=== PATIENT | female | born 2000 | race African-American/Black ===

== ENCOUNTER 2021-09-24 18:13 | Emergency (ER) | payer MEDICAID, OTHER ==
--- NOTE | 2021-09-24 18:22 | ERPHSYRPT ---
- History of Present Illness Time Seen by Provider: 09/24/21 18:22 Source: patient Exam Limitations: no limitations Physician History: This is a 21-year-old female and underwent a section 3 months ago. Since that time she has had the incision evaluated by her lever operator. The incision itself was not infected but there was serous fluid draining per patient report. It has improved but it is still very moist in this area. In addition, the patient's child was diagnosed with thrush and patient nipples are sore bilaterally and slightly reddened. Patient has not had fevers. She has no nausea vomiting or diarrhea symptoms. Timing/Duration: day(s) Quality: burning Severity: mild Location: other (pfannensteil incision site as well as bilateral nipples) Associated Symptoms: denies symptoms Allergies/Adverse Reactions: cephalexin [From Keflex] Allergy (Verified 09/24/21 18:29) Travel Risk - International Travel Have you traveled outside of the country in past 3 weeks: No - Coronavirus Screening Are you exhibiting any of the following symptoms?: No Close contact with a COVID-19 positive Pt in past 14-21 Days: No - Review of Systems Constitutional: No Symptoms Eyes: No Symptoms Ears, Nose, & Throat: No Symptoms Respiratory: No Symptoms Cardiac: No Symptoms Abdominal/Gastrointestinal: Other (C section, transverse oriented incision site with slight mid incision opening and significant moisture without odor or pus present.) Musculoskeletal: No Symptoms Neurological: No Symptoms Psychological: No Symptoms Endocrine: No Symptoms Hematologic/Lymphatic: No Symptoms Immunological/Allergic: No Symptoms All Other Systems: Reviewed and Negative - Past Medical History Pertinent Past Medical History: Yes - Past Surgical History Past Surgical History: Yes - Nursing Vital Signs Nursing Vital Signs: Initial Vital Signs Temperature 96.8 F 09/24/21 18:13 Pulse Rate 98 H 09/24/21 18:13 Respiratory Rate 18 09/24/21 18:13 Blood Pressure 135/80 09/24/21 18:13 O2 Sat by Pulse Oximetry 96 09/24/21 18:13 Pain Scale Pain Intensity 5 - Physical Exam General Appearance: no apparent distress, alert, anxiety, obese Eye Exam: PERRL/EOMI, eyes nml inspection Ears, Nose, Throat Exam: normal ENT inspection, moist mucous membranes Neck Exam: normal inspection, non-tender, supple, full range of motion Respiratory Exam: airway intact, No chest tenderness, No respiratory distress Gastrointestinal/Abdomen Exam: other ( transverse incision site with mi d incision opening approximately 3 to 4 mm. Clearish drainage present. No pus. No odor) Back Exam: normal inspection, normal range of motion, No CVA tenderness, No vertebral tenderness Extremity Exam: normal inspection, normal range of motion, pelvis stable Neurologic Exam: alert, oriented x 3, cooperative, construction estimator II-XII nml as tested, normal mood/affect, nml cerebellar function, nml station & gait, sensation nml Skin Exam: other (bilateral areolas area burning per patient but no evidence of cellulitis.) Lymphatic Exam: No adenopathy SpO2 Interpretation: normal O2 Delivery: Room Air - Course Nursing assessment & vital signs reviewed: Yes - Progress Progress: unchanged Counseled pt/family regarding: diagnosis, need for follow-up, rad results - Departure Departure Disposition: Home Clinical Impression: Postoperative stitch abscess, Candidiasis of skin Condition: Stable Critical Care Time: No Additional Instructions: Keep the incision site area clean with soap and water and then dry well before placing zinc oxide ointment 2-3 times a day. Follow-up with your lever operator for reassessment of your incision line. Take the antifungal medication as prescribed. Prescriptions: Fluconazole 100 mg [Diflucan 100 MG] 100 mg PO DAILY #2 tablet
[2021-09-24 19:24] VITALS: BP 136/84; PULSE 88; O2SAT 98
== END 2021-09-24 19:25 | disposition home or self-care (01) ==
LOC: ED 18:13
DX: O86.01 Infection of obstetric surgical wound, superficial incisional site (principal); B37.2 Candidiasis of skin and nail; N64.4 Mastodynia
CPT/HCPCS: 99281

== ENCOUNTER 2021-11-09 17:45 | Emergency (ER) | payer OTHER ==
[2021-11-09 18:07] VITALS: BP 145/75
[2021-11-09] MEDS ORDERED: Erythromycin 3.5 GM OPHTH. OP ONE (18:19)
[2021-11-09] MEDS ORDERED: Erythromycin 1 GM ONE (18:22)
--- NOTE | 2021-11-09 18:25 | ERPHSYRPT ---
- History of Present Illness Time Seen by Provider: 11/09/21 18:10 Source: patient Exam Limitations: no limitations Patient Subjective Stated Complaint: pt here for eye drainage and matting today, her son has the same co's, no fever Triage Nursing Assessment: pt alert, walked in resp easy, skin w/d/p. no redness to eyes, no fever Physician History: Patient 21-year-old female presents to emergency department for evaluation of conjunctivitis. Patient states her eyes are matted shut in the morning. Patient states her son has same symptoms. She currently feels well. No acute change in vision. No headache. No nausea or vomiting. No diarrhea. No rash. Some congestion. Overall feels well. Symptoms are mild in intensity. No specific worsening proving factors. Patient voices no other complaints or concerns at this time. Portions of this note were created with voice recognition technology. There may be grammatical, spelling, punctuation or sound alike errors Timing/Duration: today Severity: moderate Modifying Factors: Improves With: nothing Associated Symptoms: denies symptoms Allergies/Adverse Reactions: cephalexin [From Keflex] Allergy (Verified 11/09/21 18:08) Hx Tetanus, Diphtheria Vaccination/Date Given: No Hx Influenza Vaccination/Date Given: Yes Hx Pneumococcal Vaccination/Date Given: No Immunizations Up to Date: Yes Travel Risk - International Travel Have you traveled outside of the country in past 3 weeks: No - Coronavirus Screening Are you exhibiting any of the following symptoms?: No Close contact with a COVID-19 positive Pt in past 14-21 Days: No - Vaccine Status Have you recieved a Covid-19 vaccination: No - Review of Systems Constitutional: No Symptoms, No Fever, No Chills Eyes: No Symptoms Ears, Nose, & Throat: No Symptoms Respiratory: No Symptoms, No Cough, No Dyspnea Cardiac: No Symptoms, No Chest Pain, No Edema, No Syncope Abdominal/Gastrointestinal: No Symptoms, No Abdominal Pain, No Nausea, No Vomiting, No Diarrhea Genitourinary Symptoms: No Symptoms, No Dysuria Musculoskeletal: No Symptoms, No Back Pain, No Neck Pain Skin: No Symptoms, No Rash Neurological: No Symptoms, No Dizziness, No Focal Weakness, No Sensory Changes Psychological: No Symptoms Endocrine: No Symptoms Hematologic/Lymphatic: No Symptoms Immunological/Allergic: No Symptoms All Other Systems: Reviewed and Negative - Past Medical History Pertinent Past Medical History: No Neurological History: No Pertinent History ENT History: No Pertinent History Cardiac History: Other Respiratory History: No Pertinent History Endocrine Medical History: No Pertinent History Musculoskeletal History: No Pertinent History GI Medical History: No Pertinent History History: No Pertinent History Psycho-Social History: Depression Female Reproductive Disorders: No Pertinent History Other Medical History: tachycardia during . - Past Surgical History Past Surgical History: No Neuro Surgical History: No Pertinent History Cardiac: No Pertinent History Respiratory: No Pertinent History Gastrointestinal: Other Genitourinary: No Pertinent History Musculoskeletal: No Pertinent History Female Surgical History: Section Other Surgical History: born with perforated anus, has colostomy bag for 18 months. - Social History Smoking Status: Current every day smoker How long have you smoked: 4 Exposure to second hand smoke: Yes Drug Use: none Patient Lives Alone: No - Female History Hx Last Menstrual Period: month and half Hx Now: No (unsure) - Nursing Vital Signs Nursing Vital Signs: Initial Vital Signs Temperature 97.2 F 11/09/21 18:01 Pulse Rate 126 H 11/09/21 18:01 Respiratory Rate 18 11/09/21 18:01 Blood Pressure 145/75 11/09/21 18:01 O2 Sat by Pulse Oximetry 95 11/09/21 18:01 Pain Scale Pain Intensity 2 - Physical Exam General Appearance: no apparent distress, alert Eye Exam: PERRL/EOMI, eyes nml inspection, other (Bilateral conjunctival injection.), No scleral icterus, No photophobia Ears, Nose, Throat Exam: normal ENT inspection, TMs normal, pharynx normal, moist mucous membranes Neck Exam: normal inspection, non-tender, supple, full range of motion Respiratory Exam: normal breath sounds, lungs clear, airway intact, No respiratory distress Cardiovascular Exam: regular rate/rhythm, normal heart sounds, normal peripheral pulses Gastrointestinal/Abdomen Exam: soft, normal bowel sounds, No tenderness, No mass Back Exam: normal inspection, normal range of motion, No CVA tenderness, No vertebral tenderness Extremity Exam: normal inspection, normal range of motion, pelvis stable Neurologic Exam: alert, oriented x 3, cooperative, normal mood/affect, nml cerebellar function, nml station & gait, sensation nml, No motor deficits Skin Exam: normal color, warm, dry, No rash Lymphatic Exam: No adenopathy SpO2 Interpretation: normal SpO2: 95 O2 Delivery: Room Air - Course Nursing assessment & vital signs reviewed: Yes Ordered Tests: Medication Summary Discontinued Medications Generic Name Dose Route Start Last Admin Trade Name Chris PRN Reason Stop Dose Admin Erythromycin 3.5 gm 11/09/21 18:19 11/09/21 18:23 Erythromycin Base 3.5 Gm Tube Eye Ointment OP 11/09/21 18:20 3.5 gm STAT ONE Administration Erythromycin Confirm 11/09/21 18:22 Erythromycin Base 1 Gm Tube Eye Ointment Administered 11/09/21 18:23 Dose 1 gm .ROUTE .Netflix-SepSensor ONE - Progress Progress: improved Progress Note: 21-year-old female presents to our ED with bilateral conjunctivitis. Patient likely acquired it from her son who also has conjunctivitis. His symptom started yesterday. Patient symptoms started today. She voices no other complaints or concerns at this time. No acute change in vision. Patient received erythromycin ophthalmic ointment in our ED. A prescription for the same was forwarded to patient's pharmacy. Patient agrees to follow-up with primary care doctor within 48 hours for evaluation. Portions of this note were created with voice recognition technology. There may be grammatical, spelling, punctuation or sound alike errors 11/09/21 18:29 Counseled pt/family regarding: diagnosis, need for follow-up - Departure Departure Disposition: Home Clinical Impression: Conjunctivitis Condition: Stable Critical Care Time: No Referrals: JIMENA FREITAS JR [Primary Care Provider] - Follow up/PCP as directed Additional Instructions: Discharge/Care Plan ROLAND SON was seen on 11/09/21 in the Emergency Room. The patient was counseled regarding Diagnosis,Lab results, Imaging studies, need for follow up and when to return to the Emergency Room. Prescriptions given: Discharge Note I have spoken with the patient and/or caregivers. I have explained the patient's condition, diagnosis and treatment plan based on the information available to me at this time. I have answered the patient's and/or caregiver's questions and addressed any concerns. The patient and/or caregivers have as good understanding of the patient's diagnosis, condition and treatment plan as can be expected at this point. The vital signs have been stable. The patient's condition is stable and appropriate for discharge from the emergency department. The patient will pursue further outpatient evaluation with the primary care physician or other designated or consulting physician as outlined in the disc harge instructions. The patient and/or caregivers are agreeable to this plan of care and follow-up instructions have been explained in detail. The patient and/or caregivers have received these instruction. The patient/and or caregivers are aware that any significant change in condition or worsening of symptoms should prompt an immediate return to this or the closest emergency department or call 911. Prescriptions: Erythromycin Base 3.5 gm [Erythromycin 3.5 GM OPHTH.] 3.5 gm OP QID 7 Days #1 unit
[2021-11-09 18:34] VITALS: PULSE 120; O2SAT 98
== END 2021-11-09 18:34 | disposition home or self-care (01) ==
LOC: ED 17:45
DX: H10.9 Unspecified conjunctivitis (principal); Z72.0 Tobacco use; Z28.310 Unvaccinated for COVID-19
CPT/HCPCS: 99281; A9270-GY